=== PATIENT | female | born 1945 | race Hispanic/Latino ===

== ENCOUNTER 2019-03-12 10:48 | Emergency (ER) | payer MEDICARE ==
[2019-03-12] MEDS ORDERED: LORazepam 1 MG TAB PO ONE (11:24)
[2019-03-12 12:00] LABS: Eosinophils # (Auto) 0.1 K/mm3 (0.0-0.4); Eosinophils % (Auto) 1.4 % (0.0-4.3); Hematocrit 39.5 % (30.3-42.9); Hemoglobin 13.4 gm/dl (10.1-14.3); Lymphocytes % (Auto) 24.5 % (13.4-35.0); Mean Corpuscular HGB Conc 34 % (30-34); Mean Corpuscular Volume 86 fl (79-97); Monocytes # (Auto) 0.2 K/mm3 (0.0-0.8); Monocytes % (Auto) 5.5 % (0.0-7.3); Platelet Count 172 K/mm3 (140-440); Red Blood Count 4.57 M/mm3 (3.65-5.03); Red Cell Distribution Width 15.3 % (13.2-15.2)
[2019-03-12 12:07] LABS: Albumin 4.5 g/dL (3.9-5); Calcium 9.4 mg/dL (8.4-10.2)
--- NOTE | 2019-03-12 12:19 | Emergency Department Report ---
HPI - General Chief Complaint: Medical Clearance Time Seen by Provider: 03/12/19 11:13 - HPI HPI: Room 9 The patient is a 73-year-old female presenting with the chief complaint of dementia. Poorly had a "outbursts" at her assisted. Patient was combative with her table mate. When asked why she was brought to emergency department the patient replies "I don't know." The patient admits to being sad but denies suicidal ideation. The patient is a poor historian Location: [See above] Duration: [See above] Quality: [See above] Severity: [See above] Timing: [See above] Context: [See above] Modifying factors: [See above] Associated signs and symptoms: [see above] ED Past Medical Hx - Family History Family history: no significant - Social History Smoking Status: Never Smoker Substance Use Type: None - Medications Home Medications: Home Medications Medication Instructions Recorded Confirmed Last Taken Type Escitalopram 20 mg PO DAILY 03/13/19 03/13/19 Unknown History Melatonin 5 mg PO QHS 03/13/19 03/13/19 Unknown History Mirtazapine [Remeron 30mg TAB] 30 mg PO HS 03/13/19 03/13/19 Unknown History Omeprazole 40 mg PO BID 03/13/19 03/13/19 Unknown History Rivastigmine [Exelon Patch 4.6 mg TRANSDERMA DAILY 03/13/19 03/13/19 Unknown History 4.6mg/24hr] Rivastigmine [Exelon Patch 4.6 mg TRANSDERMA DAILY 03/13/19 03/13/19 Unknown History 4.6mg/24hr] Timolol 0.5% [Timoptic] 0.5 bottle OS BID 03/13/19 03/13/19 Unknown History prednisoLONE ACETATE [Prednisolone 1 drop OS DAILY 03/13/19 03/13/19 Unknown History Acetate] ED Review of Systems ROS: Stated complaint: ALZHEIMERS Other details as noted in HPI Comment: Unobtainable due to pts medical conditions Physical Exam - Physical Exam Vital Signs: Vital Signs 03/12/19 11:09 Temperature 98.1 F Pulse Rate 69 Respiratory 20 Rate Blood Pressure 192/77 O2 Sat by Pulse 100 Oximetry Physical Exam: GENERAL: The patient is well-developed well-nourished female lying on stretcher not appearing to be in acute distress. [] HEENT: Normocephalic. Atraumatic. Extraocular motions are intact. Patient has moist mucous membranes. NECK: Supple. No meningitic signs are noted. There is no adenopathy noted. CHEST/LUNGS: Clear to auscultation. There is no respiratory distress noted. HEART/CARDIOVASCULAR: Regular. There is no tachycardia. There is no gallop rub or murmur. ABDOMEN: Abdomen is soft, nontender. Patient has normal bowel sounds. There is no abdominal distention. SKIN: There is no rash. There is no edema. There is no diaphoresis. NEURO: The patient is awake, and alert but does not appear to be oriented. The patient is cooperative. The patient has no focal neurologic deficits. The patient has normal speech and gait. MUSCULOSKELETAL: There is no evidence of acute injury. ED Course Vital Signs 03/12/19 11:09 Temperature 98.1 F Pulse Rate 69 Respiratory 20 Rate Blood Pressure 192/77 O2 Sat by Pulse 100 Oximetry ED Medical Decision Making - Lab Data Result diagrams: 03/12/19 11:29 03/12/19 11:29 Laboratory Tests 03/12/19 03/12/19 03/12/19 11:24 11:24 11:29 WBC 4.3 L RBC 4.57 Hgb 13.4 Hct 39.5 MCV 86 MCH 29 MCHC 34 RDW 15.3 H Plt Count 172 Lymph % (Auto) 24.5 Early % (Auto) 5.5 Eos % (Auto) 1.4 Baso % (Auto) 1.0 Lymph # 1.0 L Early # 0.2 Eos # 0.1 Baso # 0.0 Seg Neutrophils % 67.6 Seg Neutrophils # 2.9 Sodium Potassium Chloride Carbon Dioxide Anion Gap BUN Creatinine Estimated GFR BUN/Creatinine Ratio Glucose Calcium Total Bilirubin AST ALT Alkaline Phosphatase Total Protein Albumin Albumin/Globulin Ratio Urine Color Yellow Urine Turbidity Hazy Urine pH 7.0 Ur Specific [place] 1.020 Urine Protein <15 mg/dl Urine Glucose (UA) Neg Urine Ketones Tr Urine Blood Neg Urine Nitrite Neg Urine Bilirubin Neg Urine Urobilinogen 2.0 Ur Leukocyte Esterase Tr Urine WBC (Auto) 5.0 Urine RBC (Auto) 8.0 U Epithel Cells (Auto) 5.0 Urine Mucus 2+ Urine Opiates Screen Presumptive negative Urine Methadone Screen Presumptive negative Ur Barbiturates Screen Presumptive negative Ur Phencyclidine Scrn Presumptive negative Ur Amphetamines Screen Presumptive negative U Benzodiazepines Scrn Presumptive negative Urine Cocaine Screen Presumptive negative U Marijuana (THC) Screen Presumptive negative Drugs of Abuse Note Disclamer Plasma/Serum Alcohol 03/12/19 03/12/19 11:29 11:29 WBC RBC Hgb Hct MCV MCH MCHC RDW Plt Count Lymph % (Auto) Early % (Auto) Eos % (Auto) Baso % (Auto) Lymph # Early # Eos # Baso # Seg Neutrophils % Seg Neutrophils # Sodium 141 Potassium 3.7 Chloride 103.4 Carbon Dioxide 22 Anion Gap 19 BUN 24 H Creatinine 1.1 Estimated GFR 48 BUN/Creatinine Ratio 22 Glucose 105 H Calcium 9.4 Total Bilirubin 0.50 AST 23 ALT 30 Alkaline Phosphatase 62 Total Protein 7.0 Albumin 4.5 Albumin/Globulin Ratio 1.8 Urine Color Urine Turbidity Urine pH Ur Specific [place] Urine Protein Urine Glucose (UA) Urine Ketones Urine Blood Urine Nitrite Urine Bilirubin Urine Urobilinogen Ur Leukocyte Esterase Urine WBC (Auto) Urine RBC (Auto) U Epithel Cells (Auto) Urine Mucus Urine Opiates Screen Urine Methadone Screen Ur Barbiturates Screen Ur Phencyclidine Scrn Ur Amphetamines Screen U Benzodiazepines Scrn Urine Cocaine Screen U Marijuana (THC) Screen Drugs of Abuse Note Plasma/Serum Alcohol < 0.01 - Differential Diagnosis dementia Critical care attestation.: If time is entered above; I have spent that time in minutes in the direct care of this critically ill patient, excluding procedure time. ED Disposition Clinical Impression: Dementia, Combative behavior Disposition: DC/TX-65 PSY HOSP/PSY UNIT Is pt being admited?: No Does the pt Need Aspirin: No Condition: Stable Instructions: Dementia (ED) Referrals: [facility] [Other] - 3-5 Days
[2019-03-12 13:19] LABS: Bilirubin,Urine NEG (Negative); Blood,Urine NEG (Negative); Color,Urine Yellow (Yellow); Mucus,Urine 2+ /HPF; Protein,Urine <15 mg/dL mg/dL (Negative)
[2019-03-12 13:26] LABS: Amphetamine Screen,Urine PRESUMPTIVE NEGATIVE; Benzodiazepines Screen,Urine PRESUMPTIVE NEGATIVE; Cannabinoid Screen,Urine PRESUMPTIVE NEGATIVE; Cocaine Screen,Urine PRESUMPTIVE NEGATIVE; Methadone Screen,Urine PRESUMPTIVE NEGATIVE; Opiate Screen,Urine PRESUMPTIVE NEGATIVE
[2019-03-12] MEDS ORDERED: cloNIDine 0.2 MG TAB PO ONE (14:08)
[2019-03-12] MEDS ORDERED: HALOPERIDOL LACTATE 5 MG/1 ML INJ ONE (14:17)
[2019-03-12] MEDS ORDERED: HALOPERIDOL LACTATE 5 MG/1 ML INJ IM ONE (14:24)
[2019-03-12 16:17] VITALS: BP 129/79
== END 2019-03-12 17:04 ==
LOC: ED 10:48
DX: G30.9 Alzheimer's disease, unspecified (principal); F02.81 Dementia in other diseases classified elsewhere, unspecified severity, with behavioral disturbance; Z79.899 Other long term (current) drug therapy; Z91.010 Allergy to peanuts
CPT/HCPCS: 36415; 80053; 80307; 81001; 85025; 96372; 99285; J1630; 80320; G0480

== ENCOUNTER 2019-03-12 15:09 | Inpatient (IN) | payer MEDICARE ==
[2019-03-12 21:11] LABS: Chol/HDL Ratio 3.72 %
[2019-03-12] MEDS ORDERED: MELATONIN 5 MG TAB PO SCH (22:00)
--- NOTE | 2019-03-13 07:59 | History and Physical Report ---
GP History & Physical - History of Present Illness Date of admission: 03/12/19 Date of Examination: 03/13/19 Reason for Admission: Danger to others Chief Complaint: Agressive and combative with staff and residents History of Present Illness: 73 year old female transferred to the ER for aggressive behavior towards Staffs and Resident at [facility]. Pt appears to be confused and unaware of her actions leading to her being transferred here. Pt is A&O x1 making it difficult to form a conversation due to her confusion. While assessing the pt, she stated that she is here because she was seeing things on and off for a while now. Pt stated that she is feeling pretty good today, eating well and sleeping well. Pt denies SI/HI/AVH or voices. MSE Orientation: A&O X 1 Affect: confused Mood: congruent with affect Thought Process: confused Perceptions: hallucinations Speech: paucity Concentration: focused Motor activity: normal Level of consciousness: alert Memory: minimal loss Interaction: cooperative but confused Mini-Mental Status Exam: 2 out of 30 Legal Status: Involuntary Patient Problems: Current Active Problems Major neurocognitive disorder due to Alzheimer's disease, with behavioral disturbance (Acute) Reaction to Hospitalization: Accepting Medications and Allergies Allergies Allergy/AdvReac Type Severity Reaction Status Date / Time peanut AdvReac Unknown Verified 03/12/19 11:46 Home Medications Medication Instructions Recorded Confirmed Last Taken Type Escitalopram 20 mg PO DAILY 03/13/19 03/13/19 Unknown History Melatonin 5 mg PO QHS 03/13/19 03/13/19 Unknown History Mirtazapine [Remeron 30mg TAB] 30 mg PO HS 03/13/19 03/13/19 Unknown History Omeprazole 40 mg PO BID 03/13/19 03/13/19 Unknown History Rivastigmine [Exelon Patch 4.6 mg TRANSDERMA DAILY 03/13/19 03/13/19 Unknown History 4.6mg/24hr] Rivastigmine [Exelon Patch 4.6 mg TRANSDERMA DAILY 03/13/19 03/13/19 Unknown History 4.6mg/24hr] Timolol 0.5% [Timoptic] 0.5 bottle OS BID 03/13/19 03/13/19 Unknown History prednisoLONE ACETATE [Prednisolone 1 drop OS DAILY 03/13/19 03/13/19 Unknown History Acetate] Active Meds: Active Medications Haloperidol Lactate (Haldol) 5 mg IM Q6H PRN PRN Reason: Agitation Lorazepam (Ativan) 1 mg IM Q6H PRN PRN Reason: Agitation Mirtazapine (Remeron) 30 mg PO HS JOHN Miscellaneous Medication (Omeprazole [Omeprazole]) 40 mg PO BID JOHN Miscellaneous Medication (Escitalopram) 20 mg PO DAILY JOHN Miscellaneous Medication (Melatonin) 5 mg PO QHS JOHN Prednisolone Acetate (Pred Forte 1%) drops OS DAILY JOHN Rivastigmine (Exelon) 4.6 mg TD DAILY JOHN Timolol Maleate (Timoptic) drops OS BID JOHN Substance History - Substance History Drug Use: none Hx Tobacco Use: No Alcohol Use: No Past psychiatric history - Past Medical History Past Medical History: hypertension, other (Dementia) Past Surgical History: No surgical history - Social History Social history: other (Patient lives in a NH. Rest of Social History not available at this time) Review of Systems Psychiatric: memory loss, hallucinations, confusion, irritability Results - Results Labs/Vitals: Laboratory Last Values POC Glucose 75 (70-105) 03/12/19 20:03 Hemoglobin A1c 5.7 % (4-6) 03/12/19 20:02 Triglycerides 150 mg/dL (2-149) H 03/12/19 20:02 Cholesterol 201 mg/dL (50-199) H 03/12/19 20:02 LDL Cholesterol Direct 134 mg/dL (50-130) H 03/12/19 20:02 HDL Cholesterol 54 mg/dL (40-59) 03/12/19 20:02 Cholesterol/HDL Ratio 3.72 % 03/12/19 20:02 Last Vital Signs Temp 97.3 F L 03/12/19 19:42 Pulse 68 03/12/19 19:42 Resp 20 03/12/19 19:42 BP 134/77 03/12/19 19:42 Pulse Ox 99 03/12/19 19:42 Physical Examination - Constitutional Vitals: Vital Signs Temp Pulse Resp BP Pulse Ox 97.3 F L 68 20 134/77 99 03/12/19 19:42 03/12/19 19:42 03/12/19 19:42 03/12/19 19:42 03/12/19 19:42 Temperature -Last 24 Hours Temperature 97.3 F General appearance: Present: no acute distress - EENT Eyes: Present: PERRL, EOM intact ENT: hearing intact, clear oral mucosa - Neck Neck: Present: supple, normal ROM - Respiratory Respiratory effort: normal Mental Status Exam - Vital signs Last Vital Signs Temp 97.3 F L 03/12/19 19:42 Pulse 68 03/12/19 19:42 Resp 20 03/12/19 19:42 BP 134/77 03/12/19 19:42 Pulse Ox 99 03/12/19 19:42 - Exam Affect: flat Mood: calm Thought content: other (visual hallucinations) Thought Process: Disorganized Perceptions: visual Speech: paucity Concentration: unable to pay attention Motor activity: lethargic Level of consciousness: alert Memory: Recent Impaired, Remote Impaired Interaction: cooperative Mini mental status exam(if necessary): 0-17 Assessment and Plan - Psychiatric problem (1) Major neurocognitive disorder due to Alzheimer's disease, with behavioral disturbance Current Visit: Yes Status: Acute plan to address problem: Patient will be admitted for inpatient psychiatric evaluation, medication adjustment and close monitoring The patient's behavior, mood, sleep and appetite will be closely monitored. Patient will be enrolled in individual and group therapeutic sessions and encouraged to attend. Patient will be provided with a safe and structured environment. Patient's physical health needs will be addressed by the Hospitalist. Social Assessment will be completed and the Media Production Manager will work with patient and family to ensure a suitable and safe disposition Medication adjustment will be made as clinically indicated The patient agreed on the treatment plan, understood the risk, benefit, alternative treatment, potential consequence of no treatment, and gave informed consent. Physician Certification - Certification Statement Physician Certification Statement: This is an acknowledgement statement that SEAN DELEON is a 73 year old F who requires inpatient psychiatric admission for treatment which could reasonably be expected to improve the patient's condition for Behavioral disturbance Estimated period of time patient will need to remain in the hospital: 7 days Plan for post-hospital care: Out-patient care
[2019-03-13] MEDS: LORazepam 2 MG/ML VIAL IM PRN (08:45)
[2019-03-13] MEDS: prednisoLONE ACETATE 1% OPHTH SUSP 5 ML OS SCH (09:33)
[2019-03-13] MEDS: TIMOLOL 0.5% OPHTH SOLN 5 ML OS SCH ×2 (09:33→21:09)
[2019-03-13] MEDS: PANTOPRAZOLE 40 MG TAB PO SCH (09:34)
[2019-03-13] MEDS: RIVASTIGMINE 4.6 MG/24 HR PATCH TD SCH (09:34)
[2019-03-13] MEDS: ESCITALOPRAM 10 MG TAB PO SCH (09:34)
[2019-03-13] MEDS ORDERED: NON-FORMULARY EACH (Escitalopram 20 MG) PO SCH (10:00)
[2019-03-13] MEDS ORDERED: NON-FORMULARY EACH (Omeprazole [Omeprazole] 40 MG) PO SCH (10:00)
--- NOTE | 2019-03-13 14:20 | Consultation ---
History of Present Illness - Reason for Consult Consult date: 03/13/19 Medical evaluation for admission to Geripsych unit - History of Present Illness Patient is a 73 yo woman from [facility] with a history of Depression, Anxiety, Alzheimer's Dementia and unspecified type of glaucoma who presented to [facility] ED with aggressive violent behavior toward [place] staff and residents. She gives very little history due to confusion. I called and spoke with who provided history. Patient has been in [place] still November 2018. 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 Rest of Social History not available at this time) Medications and Allergies Allergies Allergy/AdvReac Type Severity Reaction Status Date / Time peanut AdvReac Unknown Verified 03/12/19 11:46 Home Medications Medication Instructions Recorded Confirmed Last Taken Type Escitalopram 20 mg PO DAILY 03/13/19 03/13/19 Unknown History Melatonin 5 mg PO QHS 03/13/19 03/13/19 Unknown History Mirtazapine [Remeron 30mg TAB] 30 mg PO HS 03/13/19 03/13/19 Unknown History Omeprazole 40 mg PO BID 03/13/19 03/13/19 Unknown History Rivastigmine [Exelon Patch 4.6 mg TRANSDERMA DAILY 03/13/19 03/13/19 Unknown History 4.6mg/24hr] Rivastigmine [Exelon Patch 4.6 mg TRANSDERMA DAILY 03/13/19 03/13/19 Unknown History 4.6mg/24hr] Timolol 0.5% [Timoptic] 0.5 bottle OS BID 03/13/19 03/13/19 Unknown History prednisoLONE ACETATE [Prednisolone 1 drop OS DAILY 03/13/19 03/13/19 Unknown History Acetate] Active Meds: Active Medications Escitalopram Oxalate (Lexapro) 20 mg PO DAILY [facility] Last Admin: 03/13/19 09:34 Dose: 20 mg Documented by: Haloperidol Lactate (Haldol) 5 mg IM Q6H PRN PRN Reason: Agitation Lorazepam (Ativan) 1 mg IM Q6H PRN PRN Reason: Agitation Last Admin: 03/13/19 08:45 Dose: 1 mg Documented by: Melatonin (Melatonin) 5 mg PO QHS [facility] Mirtazapine (Remeron) 30 mg PO HS [facility] Pantoprazole Sodium (Protonix) 40 mg PO DAILY [facility] Last Admin: 03/13/19 09:34 Dose: 40 mg Documented by: Prednisolone Acetate (Pred Forte 1%) 1 drops OS DAILY [facility] Last Admin: 03/13/19 09:33 Dose: 1 drops Documented by: Rivastigmine (Exelon) 4.6 mg TD DAILY [facility] Last Admin: 03/13/19 09:34 Dose: 4.6 mg Documented by: Timolol Maleate (Timoptic) 1 drops OS BID [facility] Last Admin: 03/13/19 09:33 Dose: 1 drops Documented by: Exam - Physical Exam Narrative exam: Gen: thin frail, NAD, Awake, Alert, Orientated x1 HEENT: NCAT, EOMI, PERRL, OP Clear Neck: supple, no adenopathy, no thyromegaly, no JVD CVS/Heart: RRR, normal S1S2, pulses present bilaterally Chest/Lungs: CTA B, Symmetrical chest expansion, good air entry bilaterally GI/Abdomen: soft, NTND, good bowel sounds, no guarding or rebound /Bladder: no suprapubic tenderness, no CVA or paraspinal tenderness Extermity/Skin: no c/c/e, no obvious rash MSK: FROM x 4 Neuro: CN 2-12 grossly intact, no new focal deficits Psych: calm but confused - Constitutional Vitals: Temp Pulse Resp BP Pulse Ox 97.3 F L 68 20 134/77 99 03/12/19 19:42 03/12/19 19:42 03/12/19 19:42 03/12/19 19:42 03/12/19 19:42 Results - Labs Labs: Abnormal lab results 03/12/19 Range/Units 20:02 Triglycerides 150 H (2-149) mg/dL Cholesterol 201 H (50-199) mg/dL LDL Cholesterol Direct 134 H (50-130) mg/dL Assessment and Plan Patient is a 73 yo woman from [facility] with a history of Depression, Anxiety, Alzheimer's Dementia and unspecified type of glaucoma who presented to [facility] ED with aggressive violent behavior toward [facility] staff and residents. She gives very little history due to confusion. I called and spoke with who provided history. Patient has been in NH still November 2018. PCP is Dr. Lilo Earl at [place]. Alzheimer's disease with behavioral disturbances: psych to manage Glaucoma: continue NH/home drops Acute encephalopathy: Evaluated for UTI, use Miralax for constipation Depression: Psych to evaluate
[2019-03-13] MEDS ORDERED: POLYETHYLENE GLYCOL 3350 17 GM POWDER PO PRN (14:22)
[2019-03-13] MEDS: MELATONIN 5 MG TAB PO SCH (21:09)
[2019-03-13] MEDS: MIRTAZAPINE 30 MG TAB PO SCH (21:09)
[2019-03-13] MEDS ORDERED: NON-FORMULARY EACH (Melatonin 5 MG) PO SCH (22:00)
--- NOTE | 2019-03-14 07:10 | Progress Note ---
Subjective Date of service: 03/14/19 Principal diagnosis: Dementia Subjective Comment: Pt see this morning. She sedated and lethargic. Pt made eye contact, appearing confused and disoriented. Per Nursing Notes: Pt is eating well, sleeping well and compliant with meds. Pt has no complaints or behavioral issues to report at this time. MSE Orientation: Alert Affect: confused Mood: congruent with affect Thought Process: confused Perceptions: hallucinations Speech: paucity Concentration: lethargic Motor activity: normal Level of consciousness: alert Memory: Impaired Interaction: minimum Objective - Criteria for Continued Treatment Criteria for Continued Treatment: Improving Level of Functioning - Mental Status Mental Status: Lethargic - Objective Observation Participation Level: None Reason(s) For Not Participating: Sleeping Assessment and Plan - Patient Problems (1) Major neurocognitive disorder due to Alzheimer's disease, with behavioral disturbance Current Visit: Yes Status: Acute Plan to address problem: Patient will be admitted for inpatient psychiatric evaluation, medication adjustment and close monitoring The patient's behavior, mood, sleep and appetite will be closely monitored. Patient will be enrolled in individual and group therapeutic sessions and encouraged to attend. Patient will be provided with a safe and structured environment. Patient's physical health needs will be addressed by the Hospitalist. Social Assessment will be completed and the Damper Maker will work with sherman ent and family to ensure a suitable and safe disposition Medication adjustment will be made as clinically indicated The patient agreed on the treatment plan, understood the risk, benefit, alternative treatment, potential consequence of no treatment, and gave informed consent. Medications and Allergies Allergies Allergy/AdvReac Type Severity Reaction Status Date / Time peanut AdvReac Unknown Verified 03/12/19 11:46 Home Medications Medication Instructions Recorded Confirmed Last Taken Type Escitalopram 20 mg PO DAILY 03/13/19 03/13/19 Unknown History Melatonin 5 mg PO QHS 03/13/19 03/13/19 Unknown History Mirtazapine [Remeron 30mg TAB] 30 mg PO HS 03/13/19 03/13/19 Unknown History Omeprazole 40 mg PO BID 03/13/19 03/13/19 Unknown History Rivastigmine [Exelon Patch 4.6 mg TRANSDERMA DAILY 03/13/19 03/13/19 Unknown History 4.6mg/24hr] Rivastigmine [Exelon Patch 4.6 mg TRANSDERMA DAILY 03/13/19 03/13/19 Unknown History 4.6mg/24hr] Timolol 0.5% [Timoptic] 0.5 bottle OS BID 03/13/19 03/13/19 Unknown History prednisoLONE ACETATE [Prednisolone 1 drop OS DAILY 03/13/19 03/13/19 Unknown History Acetate] Active Meds: Active Medications Escitalopram Oxalate (Lexapro) 20 mg PO DAILY [facility] Last Admin: 03/13/19 09:34 Dose: 20 mg Documented by: Haloperidol Lactate (Haldol) 5 mg IM Q6H PRN PRN Reason: Agitation Lorazepam (Ativan) 1 mg IM Q6H PRN PRN Reason: Agitation Last Admin: 03/13/19 08:45 Dose: 1 mg Documented by: Melatonin (Melatonin) 5 mg PO QHS [facility] Last Admin: 03/13/19 21:09 Dose: 5 mg Documented by: Mirtazapine (Remeron) 30 mg PO HS [facility] Last Admin: 03/13/19 21:09 Dose: 30 mg Documented by: Pantoprazole Sodium (Protonix) 40 mg PO DAILY [facility] Last Admin: 03/13/19 09:34 Dose: 40 mg Documented by: Polyethylene Glycol (Miralax [id number]) 17 gm PO QDAY PRN PRN Reason: Constipation Prednisolone Acetate (Pred Forte 1%) 1 drops OS DAILY [facility] Last Admin: 03/13/19 09:33 Dose: 1 drops Documented by: Rivastigmine (Exelon) 4.6 mg TD DAILY [facility] Last Admin: 03/13/19 09:34 Dose: 4.6 mg Documented by: Timolol Maleate (Timoptic) 1 drops OS BID [facility] Last Admin: 03/13/19 21:09 Dose: 1 drops Documented by: Results - Results Labs/Vitals: Laboratory Last Values POC Glucose 75 (70-105) 03/12/19 20:03 Hemoglobin A1c 5.7 % (4-6) 03/12/19 20:02 Triglycerides 150 mg/dL (2-149) H 03/12/19 20:02 Cholesterol 201 mg/dL (50-199) H 03/12/19 20:02 LDL Cholesterol Direct 134 mg/dL (50-130) H 03/12/19 20:02 HDL Cholesterol 54 mg/dL (40-59) 03/12/19 20:02 Cholesterol/HDL Ratio 3.72 % 03/12/19 20:02 Last Vital Signs Temp 98.2 F 03/13/19 09:18 Pulse 95 H 03/13/19 09:18 Resp 16 03/13/19 09:18 BP 135/72 03/13/19 09:18 Pulse Ox 98 03/13/19 09:18
[2019-03-14] MEDS: RIVASTIGMINE 4.6 MG/24 HR PATCH TD SCH (09:40)
[2019-03-14] MEDS: ESCITALOPRAM 10 MG TAB PO SCH (09:40)
[2019-03-14] MEDS: prednisoLONE ACETATE 1% OPHTH SUSP 5 ML OS SCH (09:40)
[2019-03-14] MEDS: TIMOLOL 0.5% OPHTH SOLN 5 ML OS SCH ×2 (09:40→21:16)
[2019-03-14] MEDS: PANTOPRAZOLE 40 MG TAB PO SCH (09:41)
[2019-03-14] MEDS: MELATONIN 5 MG TAB PO SCH (21:15)
[2019-03-14] MEDS: MIRTAZAPINE 30 MG TAB PO SCH (21:16)
[2019-03-14] MEDS: LORazepam 2 MG/ML VIAL IM PRN (22:21)
[2019-03-14] MEDS: HALOPERIDOL LACTATE 5 MG/1 ML INJ IM PRN (23:20)
--- NOTE | 2019-03-15 08:42 | Progress Note ---
Subjective Date of service: 03/15/19 Principal diagnosis: Dementia Subjective Comment: Patient was very agitated last night and required multiple PRN medications. She is sleeping comfortably in bed, responds to stimuli Per nurses notes; patient is alert and oriented to person, confused, and fo rgetful, consumed 100% of bedtime snacks and 236 ml of fluids, patient is compliant with medication, At bedtime, patient began wandering the unit, asking about her and children, patient was redirected, patient was taken to her room, she became aggressive, combative, yelling, screaming, kicking the bed; ativan 1mg 1m given, med was ineffective, haldol 5mg Im given with effect, patient then allowed staff to clean and change her, patient slept comfortably throughout the night for 5-6hrs. MSE Orientation: Alert Affect: confused Mood: congruent with affect Thought Process: confused Perceptions: hallucinations Speech: paucity Concentration: lethargic Motor activity: normal Level of consciousness: alert Memory: Impaired Interaction: minimum Objective - Criteria for Continued Treatment Criteria for Continued Treatment: Stablizing Level of Functioning - Mental Status Mental Status: Alert - Objective Observation Participation Level: None Reason(s) For Not Participating: Sleeping Assessment and Plan - Patient Problems (1) Major neurocognitive disorder due to Alzheimer's disease, with behavioral disturbance Current Visit: Yes Status: Acute Plan to address problem: Patient will be admitted for inpatient psychiatric evaluation, medication adjustment and close monitoring The patient's behavior, mood, sleep and appetite will be closely monitored. Patient will be enrolled in individual and group therapeutic sessions and encouraged to attend. Patient will be provided with a safe and structured environment. Patient's physical health needs will be addressed by the Hospitalist. Social Assessment will be completed and the Salsa Dance Instructor will work with patient and family to ensure a suitable and safe disposition Medication adjustment will be made as clinically indicated The patient agreed on the treatment plan, understood the risk, benefit, alternative treatment, potential consequence of no treatment, and gave informed consent. Medications and Allergies Allergies Allergy/AdvReac Type Severity Reaction Status Date / Time peanut AdvReac Unknown Verified 03/12/19 11:46 Home Medications Medication Instructions Recorded Confirmed Last Taken Type Escitalopram 20 mg PO DAILY 03/13/19 03/13/19 Unknown History Melatonin 5 mg PO QHS 03/13/19 03/13/19 Unknown History Mirtazapine [Remeron 30mg TAB] 30 mg PO HS 03/13/19 03/13/19 Unknown History Omeprazole 40 mg PO BID 03/13/19 03/13/19 Unknown History Rivastigmine [Exelon Patch 4.6 mg TRANSDERMA DAILY 03/13/19 03/13/19 Unknown History 4.6mg/24hr] Rivastigmine [Exelon Patch 4.6 mg TRANSDERMA DAILY 03/13/19 03/13/19 Unknown History 4.6mg/24hr] Timolol 0.5% [Timoptic] 0.5 bottle OS BID 03/13/19 03/13/19 Unknown History prednisoLONE ACETATE [Prednisolone 1 drop OS DAILY 03/13/19 03/13/19 Unknown History Acetate] Active Meds: Active Medications Escitalopram Oxalate (Lexapro) 20 mg PO DAILY [facility] Last Admin: 03/14/19 09:40 Dose: 20 mg Documented by: Haloperidol Lactate (Haldol) 5 mg IM Q6H PRN PRN Reason: Agitation Last Admin: 03/14/19 23:20 Dose: 5 mg Documented by: Lorazepam (Ativan) 1 mg IM Q6H PRN PRN Reason: Agitation Last Admin: 03/14/19 22:21 Dose: 1 mg Documented by: Melatonin (Melatonin) 10 mg PO QPM [facility] Mirtazapine (Remeron) 15 mg PO QHS [facility] Pantoprazole Sodium (Protonix) 40 mg PO DAILY [facility] Last Admin: 03/14/19 09:41 Dose: 40 mg Documented by: Polyethylene Glycol (Miralax [id number]) 17 gm PO QDAY PRN PRN Reason: Constipation Prednisolone Acetate (Pred Forte 1%) 1 drops OS DAILY [facility] Last Admin: 03/14/19 09:40 Dose: 1 drops Documented by: Rivastigmine (Exelon) 4.6 mg TD DAILY [facility] Last Admin: 03/14/19 09:40 Dose: 4.6 mg Documented by: Timolol Maleate (Timoptic) 1 drops OS BID [facility] Last Admin: 03/14/19 21:16 Dose: 1 drops Documented by: Trazodone HCl (Desyrel) 50 mg PO QPM [facility] Results - Results Labs/Vitals: Laboratory Last Values POC Glucose 75 (70-105) 03/12/19 20:03 Hemoglobin A1c 5.7 % (4-6) 03/12/19 20:02 Triglycerides 150 mg/dL (2-149) H 03/12/19 20:02 Cholesterol 201 mg/dL (50-199) H 03/12/19 20:02 LDL Cholesterol Direct 134 mg/dL (50-130) H 03/12/19 20:02 HDL Cholesterol 54 mg/dL (40-59) 03/12/19 20:02 Cholesterol/HDL Ratio 3.72 % 03/12/19 20:02 Last Vital Signs Temp 98.0 F 03/14/19 20:59 Pulse 90 03/14/19 20:59 Resp 20 03/14/19 20:59 BP 162/87 03/14/19 20:59 Pulse Ox 97 03/14/19 20:59
[2019-03-15] MEDS: PANTOPRAZOLE 40 MG TAB PO SCH (10:24)
[2019-03-15] MEDS: RIVASTIGMINE 4.6 MG/24 HR PATCH TD SCH (10:24)
[2019-03-15] MEDS: TIMOLOL 0.5% OPHTH SOLN 5 ML OS SCH ×2 (10:24→21:14)
[2019-03-15] MEDS: ESCITALOPRAM 10 MG TAB PO SCH (10:24)
[2019-03-15] MEDS: prednisoLONE ACETATE 1% OPHTH SUSP 5 ML OS SCH (10:24)
[2019-03-15] MEDS: traZODone 50 MG TAB PO SCH (17:50)
[2019-03-15] MEDS: MELATONIN 5 MG TAB PO SCH (17:50)
[2019-03-15] MEDS: MIRTAZAPINE 15 MG TAB PO SCH (21:14)
[2019-03-16] MEDS: ESCITALOPRAM 10 MG TAB PO SCH (10:20)
[2019-03-16] MEDS: PANTOPRAZOLE 40 MG TAB PO SCH (10:20)
[2019-03-16] MEDS: RIVASTIGMINE 4.6 MG/24 HR PATCH TD SCH (10:20)
[2019-03-16] MEDS: prednisoLONE ACETATE 1% OPHTH SUSP 5 ML OS SCH (10:21)
[2019-03-16] MEDS: TIMOLOL 0.5% OPHTH SOLN 5 ML OS SCH ×2 (10:21→21:43)
--- NOTE | 2019-03-16 13:09 | Progress Note ---
Subjective Date of service: 03/16/19 Principal diagnosis: Dementia Subjective Comment: Patient continues to be agitated, confused and difficult to redirect. Per nurses notes; patient is alert and oriented x's 1, confused, and forgetful. patient thoughts are fragmented and disorganized. patient wanders around unit, requiring redirection. currently medication compliant. no s/sx of si/hi. no c/o pain. patient requires prompting with adl's. cooperative with adl's this AM. will continue to monitor for safety. MSE Orientation: Alert Affect: confused Mood: congruent with affect Thought Process: confused Perceptions: hallucinations Speech: paucity Concentration: lethargic Motor activity: normal Level of consciousness: alert Memory: Impaired Interaction: minimum Assessment and Plan - Patient Problems (1) Major neurocognitive disorder due to Alzheimer's disease, with behavioral disturbance Current Visit: Yes Status: Acute Plan to address problem: Patient will be admitted for inpatient psychiatric evaluation, medication adjustment and close monitoring The patient's behavior, mood, sleep and appetite will be closely monitored. Patient will be enrolled in individual and group therapeutic sessions and encouraged to attend. Patient will be provided with a safe and structured environment. Patient's physical health needs will be addressed by the Hospitalist. Social Assessment will be completed and the Assistant Associate Professor will work with patient and family to ensure a suitable and safe disposition Medication adjustment will be made as clinically indicated The patient agreed on the treatment plan, understood the risk, benefit, alternative treatment, potential consequence of no treatment, and gave informed consent. Medications and Allergies Allergies Allergy/AdvReac Type Severity Reaction Status Date / Time peanut AdvReac Unknown Verified 03/12/19 11:46 Home Medications Medication Instructions Recorded Confirmed Last Taken Type Escitalopram 20 mg PO DAILY 03/13/19 03/13/19 Unknown History Melatonin 5 mg PO QHS 03/13/19 03/13/19 Unknown History Mirtazapine [Remeron 30mg TAB] 30 mg PO HS 03/13/19 03/13/19 Unknown History Omeprazole 40 mg PO BID 03/13/19 03/13/19 Unknown History Rivastigmine [Exelon Patch 4.6 mg TRANSDERMA DAILY 03/13/19 03/13/19 Unknown History 4.6mg/24hr] Rivastigmine [Exelon Patch 4.6 mg TRANSDERMA DAILY 03/13/19 03/13/19 Unknown History 4.6mg/24hr] Timolol 0.5% [Timoptic] 0.5 bottle OS BID 03/13/19 03/13/19 Unknown History prednisoLONE ACETATE [Prednisolone 1 drop OS DAILY 03/13/19 03/13/19 Unknown History Acetate] Active Meds: Active Medications Escitalopram Oxalate (Lexapro) 20 mg PO DAILY [facility] Last Admin: 03/16/19 10:20 Dose: 20 mg Documented by: Haloperidol Lactate (Haldol) 5 mg IM Q6H PRN PRN Reason: Agitation Last Admin: 03/14/19 23:20 Dose: 5 mg Documented by: Lorazepam (Ativan) 1 mg IM Q6H PRN PRN Reason: Agitation Last Admin: 03/14/19 22:21 Dose: 1 mg Documented by: Melatonin (Melatonin) 10 mg PO QPM [facility] Last Admin: 03/15/19 17:50 Dose: 10 mg Documented by: Mirtazapine (Remeron) 15 mg PO QHS [facility] Last Admin: 03/15/19 21:14 Dose: 15 mg Documented by: Pantoprazole Sodium (Protonix) 40 mg PO DAILY [facility] Last Admin: 03/16/19 10:20 Dose: 40 mg Documented by: Polyethylene Glycol (Miralax [id number]) 17 gm PO QDAY PRN PRN Reason: Constipation Prednisolone Acetate (Pred Forte 1%) 1 drops OS DAILY [facility] Last Admin: 03/16/19 10:21 Dose: 1 drops Documented by: Rivastigmine (Exelon) 4.6 mg TD DAILY [facility] Last Admin: 03/16/19 10:20 Dose: 4.6 mg Documented by: Timolol Maleate (Timoptic) 1 drops OS BID [facility] Last Admin: 03/16/19 10:21 Dose: 1 drops Documented by: Trazodone HCl (Desyrel) 50 mg PO QPM [facility] Last Admin: 03/15/19 17:50 Dose: 50 mg Documented by: Results - Results Labs/Vitals: Laboratory Last Values POC Glucose 75 (70-105) 03/12/19 20:03 Hemoglobin A1c 5.7 % (4-6) 03/12/19 20:02 Triglycerides 150 mg/dL (2-149) H 03/12/19 20:02 Cholesterol 201 mg/dL (50-199) H 03/12/19 20:02 LDL Cholesterol Direct 134 mg/dL (50-130) H 03/12/19 20:02 HDL Cholesterol 54 mg/dL (40-59) 03/12/19 20:02 Cholesterol/HDL Ratio 3.72 % 03/12/19 20:02 Last Vital Signs Temp 97.9 F 03/16/19 09:32 Pulse 80 03/16/19 09:32 Resp 18 03/15/19 19:25 BP 159/85 03/16/19 09:32 Pulse Ox 99 03/16/19 09:32
[2019-03-16] MEDS: MELATONIN 5 MG TAB PO SCH (17:01)
[2019-03-16] MEDS: traZODone 50 MG TAB PO SCH (17:01)
[2019-03-16] MEDS: MIRTAZAPINE 15 MG TAB PO SCH (21:43)
[2019-03-17] MEDS: prednisoLONE ACETATE 1% OPHTH SUSP 5 ML OS SCH (13:14)
[2019-03-17] MEDS: RIVASTIGMINE 4.6 MG/24 HR PATCH TD SCH (13:14)
[2019-03-17] MEDS: ESCITALOPRAM 10 MG TAB PO SCH (13:14)
[2019-03-17] MEDS: PANTOPRAZOLE 40 MG TAB PO SCH (13:15)
[2019-03-17] MEDS: TIMOLOL 0.5% OPHTH SOLN 5 ML OS SCH ×2 (13:16→21:34)
--- NOTE | 2019-03-17 14:22 | Progress Note ---
Subjective Date of service: 03/17/19 Principal diagnosis: Dementia Subjective Comment: Patient continues to be agitated, confused and difficult to redirect. Per nurses notes: pt is A&O to person, confused and unable to focus on task. pt was restless this morning, she was wandering and exit seeking. pt was easily redirected and reoriented to reality. pt received a shower w/ assistance and max direction. pt has been compliant w/ meds and cooperative w/ staff. gait is unsteady at times, SBA provided prn. appetite is fair, v/s stable. MSE Orientation: Alert Affect: confused Mood: congruent with affect Thought Process: confused Perceptions: hallucinations Speech: paucity Concentration: lethargic Motor activity: normal Level of consciousness: alert Memory: Impaired Interaction: minimum Objective - Criteria for Continued Treatment Criteria for Continued Treatment: Improving Level of Functioning, Stablizing Level of Functioning, Improving Emotional/Socia - Objective Observation Participation Level: Minimal Reason(s) For Not Participating: Unable Assessment and Plan - Patient Problems (1) Major neurocognitive disorder due to Alzheimer's disease, with behavioral disturbance Current Visit: Yes Status: Acute Plan to address problem: Patient will be admitted for inpatient psychiatric evaluation, medication adjustment and close monitoring The patient's behavior, mood, sleep and appetite will be closely monitored. Patient will be enrolled in individual and group therapeutic sessions and encouraged to attend. Patient will be provided with a safe and structured environment. Patient's physical health needs will be addressed by the Hospitalist. Social Assessment will be completed and the Facility Manager Histology will work with patient and family to ensure a suitable and safe disposition Medication adjustment will be made as clinically indicated The patient agreed on the treatment plan, understood the risk, benefit, alternative treatment, potential consequence of no treatment, and gave informed consent. Medications and Allergies Allergies Allergy/AdvReac Type Severity Reaction Status Date / Time peanut AdvReac Unknown Verified 03/12/19 11:46 Home Medications Medication Instructions Recorded Confirmed Last Taken Type Escitalopram 20 mg PO DAILY 03/13/19 03/13/19 Unknown History Melatonin 5 mg PO QHS 03/13/19 03/13/19 Unknown History Mirtazapine [Remeron 30mg TAB] 30 mg PO HS 03/13/19 03/13/19 Unknown History Omeprazole 40 mg PO BID 03/13/19 03/13/19 Unknown History Rivastigmine [Exelon Patch 4.6 mg TRANSDERMA DAILY 03/13/19 03/13/19 Unknown History 4.6mg/24hr] Rivastigmine [Exelon Patch 4.6 mg TRANSDERMA DAILY 03/13/19 03/13/19 Unknown History 4.6mg/24hr] Timolol 0.5% [Timoptic] 0.5 bottle OS BID 03/13/19 03/13/19 Unknown History prednisoLONE ACETATE [Prednisolone 1 drop OS DAILY 03/13/19 03/13/19 Unknown History Acetate] Active Meds: Active Medications Escitalopram Oxalate (Lexapro) 20 mg PO DAILY [facility] Last Admin: 03/17/19 13:14 Dose: 20 mg Documented by: Haloperidol Lactate (Haldol) 5 mg IM Q6H PRN PRN Reason: Agitation Last Admin: 03/14/19 23:20 Dose: 5 mg Documented by: Lorazepam (Ativan) 1 mg IM Q6H PRN PRN Reason: Agitation Last Admin: 03/14/19 22:21 Dose: 1 mg Documented by: Melatonin (Melatonin) 10 mg PO QPM [facility] Last Admin: 03/16/19 17:01 Dose: 10 mg Documented by: Mirtazapine (Remeron) 15 mg PO QHS [facility] Last Admin: 03/16/19 21:43 Dose: 15 mg Documented by: Pantoprazole Sodium (Protonix) 40 mg PO DAILY [facility] Last Admin: 03/17/19 13:15 Dose: 40 mg Documented by: Polyethylene Glycol (Miralax [id number]) 17 gm PO QDAY PRN PRN Reason: Constipation Prednisolone Acetate (Pred Forte 1%) 1 drops OS DAILY [facility] Last Admin: 03/17/19 13:14 Dose: 1 drops Documented by: Rivastigmine (Exelon) 4.6 mg TD DAILY [facility] Last Admin: 03/17/19 13:14 Dose: 4.6 mg Documented by: Timolol Maleate (Timoptic) 1 drops OS BID [facility] Last Admin: 03/17/19 13:16 Dose: 1 drops Documented by: Trazodone HCl (Desyrel) 50 mg PO QPM [facility] Last Admin: 03/16/19 17:01 Dose: 50 mg Documented by: Results - Results Labs/Vitals: Laboratory Last Values POC Glucose 75 (70-105) 03/12/19 20:03 Hemoglobin A1c 5.7 % (4-6) 03/12/19 20:02 Triglycerides 150 mg/dL (2-149) H 03/12/19 20:02 Cholesterol 201 mg/dL (50-199) H 03/12/19 20:02 LDL Cholesterol Direct 134 mg/dL (50-130) H 03/12/19 20:02 HDL Cholesterol 54 mg/dL (40-59) 03/12/19 20:02 Cholesterol/HDL Ratio 3.72 % 03/12/19 20:02 Last Vital Signs Temp 98.2 F 03/17/19 09:30 Pulse 80 03/16/19 09:32 Resp 16 03/17/19 09:30 BP 157/85 03/17/19 09:30 Pulse Ox 99 03/16/19 09:32
[2019-03-17] MEDS: traZODone 50 MG TAB PO SCH (18:06)
[2019-03-17] MEDS: MELATONIN 5 MG TAB PO SCH (18:06)
[2019-03-17] MEDS: MIRTAZAPINE 15 MG TAB PO SCH (21:34)
[2019-03-18] MEDS: RIVASTIGMINE 4.6 MG/24 HR PATCH TD SCH (10:01)
[2019-03-18] MEDS: ESCITALOPRAM 10 MG TAB PO SCH (10:01)
[2019-03-18] MEDS: prednisoLONE ACETATE 1% OPHTH SUSP 5 ML OS SCH (10:01)
[2019-03-18] MEDS: PANTOPRAZOLE 40 MG TAB PO SCH (10:03)
[2019-03-18] MEDS: TIMOLOL 0.5% OPHTH SOLN 5 ML OS SCH ×2 (10:05→21:27)
--- NOTE | 2019-03-18 13:09 | Progress Note ---
Subjective Date of service: 03/18/19 Principal diagnosis: Dementia Subjective Comment: Patient is calmer and more cooperative. No aggressive behavior and mno prn medication given over the last 24 hours. Per nurses notes: Pt received at 1915 in activity room watching television, alert and oriented to person, no distress noted, will continue to monitor for safety. MSE Orientation: Alert Affect: confused Mood: congruent with affect Thought Process: confused Perceptions: hallucinations Speech: paucity Concentration: lethargic Motor activity: normal Level of consciousness: alert Memory: Impaired Interaction: minimum Objective - Criteria for Continued Treatment Criteria for Continued Treatment: Improving Level of Functioning, Stablizing Level of Functioning, Improving Emotional/Socia - Objective Observation Participation Level: Minimal Reason(s) For Not Participating: Unable Assessment and Plan - Patient Problems (1) Major neurocognitive disorder due to Alzheimer's disease, with behavioral disturbance Current Visit: Yes Status: Acute Plan to address problem: Patient will be admitted for inpatient psychiatric evaluation, medication adjustment and close monitoring The patient's behavior, mood, sleep and appetite will be closely monitored. Patient will be enrolled in individual and group therapeutic sessions and encouraged to attend. Patient will be provided with a safe and structured environment. Patient's physical health needs will be addressed by the Hospitalist. Social Assessment will be completed and the Stemming Machine Operator will work with patient and family to ensure a suitable and safe disposition Medication adjustment will be made as clinically indicated The patient agreed on the treatment plan, understood the risk, benefit, a lternative treatment, potential consequence of no treatment, and gave informed consent. Medications and Allergies Allergies Allergy/AdvReac Type Severity Reaction Status Date / Time peanut AdvReac Unknown Verified 03/12/19 11:46 Home Medications Medication Instructions Recorded Confirmed Last Taken Type Escitalopram 20 mg PO DAILY 03/13/19 03/13/19 Unknown History Melatonin 5 mg PO QHS 03/13/19 03/13/19 Unknown History Mirtazapine [Remeron 30mg TAB] 30 mg PO HS 03/13/19 03/13/19 Unknown History Omeprazole 40 mg PO BID 03/13/19 03/13/19 Unknown History Rivastigmine [Exelon Patch 4.6 mg TRANSDERMA DAILY 03/13/19 03/13/19 Unknown History 4.6mg/24hr] Rivastigmine [Exelon Patch 4.6 mg TRANSDERMA DAILY 03/13/19 03/13/19 Unknown History 4.6mg/24hr] Timolol 0.5% [Timoptic] 0.5 bottle OS BID 03/13/19 03/13/19 Unknown History prednisoLONE ACETATE [Prednisolone 1 drop OS DAILY 03/13/19 03/13/19 Unknown History Acetate] Active Meds: Active Medications Escitalopram Oxalate (Lexapro) 20 mg PO DAILY [facility] Last Admin: 03/18/19 10:01 Dose: 20 mg Documented by: Haloperidol Lactate (Haldol) 5 mg IM Q6H PRN PRN Reason: Agitation Last Admin: 03/14/19 23:20 Dose: 5 mg Documented by: Lorazepam (Ativan) 1 mg IM Q6H PRN PRN Reason: Agitation Last Admin: 03/14/19 22:21 Dose: 1 mg Documented by: Melatonin (Melatonin) 10 mg PO QPM [facility] Last Admin: 03/17/19 18:06 Dose: 10 mg Documented by: Mirtazapine (Remeron) 15 mg PO QHS [facility] Last Admin: 03/17/19 21:34 Dose: 15 mg Documented by: Pantoprazole Sodium (Protonix) 40 mg PO DAILY [facility] Last Admin: 03/18/19 10:03 Dose: 40 mg Documented by: Polyethylene Glycol (Miralax [id number]) 17 gm PO QDAY PRN PRN Reason: Constipation Prednisolone Acetate (Pred Forte 1%) 1 drops OS DAILY [facility] Last Admin: 03/18/19 10:01 Dose: 1 drops Documented by: Rivastigmine (Exelon) 4.6 mg TD DAILY [facility] Last Admin: 03/18/19 10:01 Dose: 4.6 mg Documented by: Timolol Maleate (Timoptic) 1 drops OS BID [facility] Last Admin: 03/18/19 10:05 Dose: 1 drops Documented by: Trazodone HCl (Desyrel) 50 mg PO QPM [facility] Last Admin: 03/17/19 18:06 Dose: 50 mg Documented by: Results - Results Labs/Vitals: Laboratory Last Values POC Glucose 75 (70-105) 03/12/19 20:03 Hemoglobin A1c 5.7 % (4-6) 03/12/19 20:02 Triglycerides 150 mg/dL (2-149) H 03/12/19 20:02 Cholesterol 201 mg/dL (50-199) H 03/12/19 20:02 LDL Cholesterol Direct 134 mg/dL (50-130) H 03/12/19 20:02 HDL Cholesterol 54 mg/dL (40-59) 03/12/19 20:02 Cholesterol/HDL Ratio 3.72 % 03/12/19 20:02 Last Vital Signs Temp 98.2 F 03/18/19 09:47 Pulse 97 H 03/18/19 09:47 Resp 16 03/18/19 09:47 BP 136/85 03/18/19 09:47 Pulse Ox 99 03/18/19 09:47
[2019-03-18] MEDS: MELATONIN 5 MG TAB PO SCH (19:27)
[2019-03-18] MEDS: traZODone 50 MG TAB PO SCH (19:28)
[2019-03-18] MEDS: LORazepam 2 MG/ML VIAL IM PRN (19:53)
[2019-03-18] MEDS: HALOPERIDOL LACTATE 5 MG/1 ML INJ IM PRN (20:51)
[2019-03-18] MEDS: MIRTAZAPINE 15 MG TAB PO SCH (21:27)
--- NOTE | 2019-03-19 07:45 | Progress Note ---
Subjective Date of service: 03/19/19 Principal diagnosis: Dementia Subjective Comment: No major changes. Per nurses notes, Patient began wandering the unit confused at approximately 1920 last night, pushing doors, asking for children, screaming, combative with staff, very difficult to redirect; Ativan Img IM given at 1952, medication ineffective, Haldol 5mg IM given at 2050 ordered to be given if ativan ineffective; po medication administered; Patient then slept good throughout the night, no distress noted. MSE Orientation: Alert Affect: confused Mood: congruent with affect Thought Process: confused Perceptions: hallucinations Speech: paucity Concentration: lethargic Motor activity: normal Level of consciousness: alert Memory: Impaired Interaction: minimum Objective - Criteria for Continued Treatment Criteria for Continued Treatment: Improving Level of Functioning, Stablizing Level of Functioning, Improving Emotional/Socia - Objective Observation Participation Level: Minimal Reason(s) For Not Participating: Unable Assessment and Plan - Patient Problems (1) Major neurocognitive disorder due to Alzheimer's disease, with behavioral disturbance Current Visit: Yes Status: Acute Plan to address problem: Patient will be admitted for inpatient psychiatric evaluation, medication adjustment and close monitoring The patient's behavior, mood, sleep and appetite will be closely monitored. Patient will be enrolled in individual and group therapeutic sessions and encouraged to attend. Patient will be provided with a safe and structured environment. Patient's physical health needs will be addressed by the Hospitalist. Social Assessment will be completed and the Application Support Intern will work with patient and family to ensure a suitable and safe disposition Medication adjustment will be made as clinically indicated The patient agreed on the treatment plan, understood the risk, benefit, alternative treatment, potential consequence of no treatment, and gave informed consent. Medications and Allergies Allergies Allergy/AdvReac Type Severity Reaction Status Date / Time peanut AdvReac Unknown Verified 03/12/19 11:46 Home Medications Medication Instructions Recorded Confirmed Last Taken Type Escitalopram 20 mg PO DAILY 03/13/19 03/13/19 Unknown History Melatonin 5 mg PO QHS 03/13/19 03/13/19 Unknown History Mirtazapine [Remeron 30mg TAB] 30 mg PO HS 03/13/19 03/13/19 Unknown History Omeprazole 40 mg PO BID 03/13/19 03/13/19 Unknown History Rivastigmine [Exelon Patch 4.6 mg TRANSDERMA DAILY 03/13/19 03/13/19 Unknown History 4.6mg/24hr] Rivastigmine [Exelon Patch 4.6 mg TRANSDERMA DAILY 03/13/19 03/13/19 Unknown History 4.6mg/24hr] Timolol 0.5% [Timoptic] 0.5 bottle OS BID 03/13/19 03/13/19 Unknown History prednisoLONE ACETATE [Prednisolone 1 drop OS DAILY 03/13/19 03/13/19 Unknown History Acetate] Active Meds: Active Medications Escitalopram Oxalate (Lexapro) 20 mg PO DAILY [facility] Last Admin: 03/18/19 10:01 Dose: 20 mg Documented by: Haloperidol Lactate (Haldol) 5 mg IM Q6H PRN PRN Reason: Agitation Last Admin: 03/18/19 20:51 Dose: 5 mg Documented by: Lorazepam (Ativan) 1 mg IM Q6H PRN PRN Reason: Agitation Last Admin: 03/18/19 19:53 Dose: 1 mg Documented by: Melatonin (Melatonin) 10 mg PO QPM [facility] Last Admin: 03/18/19 19:27 Dose: 10 mg Documented by: Mirtazapine (Remeron) 15 mg PO QHS [facility] Last Admin: 03/18/19 21:27 Dose: 15 mg Documented by: Pantoprazole Sodium (Protonix) 40 mg PO DAILY [facility] Last Admin: 03/18/19 10:03 Dose: 40 mg Documented by: Polyethylene Glycol (Miralax [id number]) 17 gm PO QDAY PRN PRN Reason: Constipation Prednisolone Acetate (Pred Forte 1%) 1 drops OS DAILY [facility] Last Admin: 03/18/19 10:01 Dose: 1 drops Documented by: Rivastigmine (Exelon) 4.6 mg TD DAILY [facility] Last Admin: 03/18/19 10:01 Dose: 4.6 mg Documented by: Timolol Maleate (Timoptic) 1 drops OS BID [facility] Last Admin: 03/18/19 21:27 Dose: 1 drops Documented by: Trazodone HCl (Desyrel) 50 mg PO QPM [facility] Last Admin: 03/18/19 19:28 Dose: 50 mg Documented by: Results - Results Labs/Vitals: Laboratory Last Values POC Glucose 75 (70-105) 03/12/19 20:03 Hemoglobin A1c 5.7 % (4-6) 03/12/19 20:02 Triglycerides 150 mg/dL (2-149) H 03/12/19 20:02 Cholesterol 201 mg/dL (50-199) H 03/12/19 20:02 LDL Cholesterol Direct 134 mg/dL (50-130) H 03/12/19 20:02 HDL Cholesterol 54 mg/dL (40-59) 03/12/19 20:02 Cholesterol/HDL Ratio 3.72 % 03/12/19 20:02 Last Vital Signs Temp 98.2 F 03/18/19 09:47 Pulse 97 H 03/18/19 09:47 Resp 16 03/18/19 09:47 BP 136/85 03/18/19 09:47 Pulse Ox 99 03/18/19 09:47
[2019-03-19] MEDS: RIVASTIGMINE 4.6 MG/24 HR PATCH TD SCH (10:24)
[2019-03-19] MEDS: PANTOPRAZOLE 40 MG TAB PO SCH (10:24)
[2019-03-19] MEDS: TIMOLOL 0.5% OPHTH SOLN 5 ML OS SCH ×2 (10:24→21:42)
[2019-03-19] MEDS: ESCITALOPRAM 10 MG TAB PO SCH (10:24)
[2019-03-19] MEDS: prednisoLONE ACETATE 1% OPHTH SUSP 5 ML OS SCH (10:25)
[2019-03-19] MEDS: traZODone 50 MG TAB PO SCH (17:12)
[2019-03-19] MEDS: MELATONIN 5 MG TAB PO SCH (17:12)
[2019-03-19] MEDS: MIRTAZAPINE 15 MG TAB PO SCH (21:41)
[2019-03-20] MEDS: TIMOLOL 0.5% OPHTH SOLN 5 ML OS SCH (09:19)
[2019-03-20] MEDS: RIVASTIGMINE 4.6 MG/24 HR PATCH TD SCH (09:19)
[2019-03-20] MEDS: prednisoLONE ACETATE 1% OPHTH SUSP 5 ML OS SCH (09:19)
[2019-03-20] MEDS: ESCITALOPRAM 10 MG TAB PO SCH (09:19)
[2019-03-20] MEDS: PANTOPRAZOLE 40 MG TAB PO SCH (09:19)
--- NOTE | 2019-03-20 09:28 | Discharge Summary ---
Providers - Providers Date of Admission: 03/12/19 18:16 Date of discharge: 03/20/19 Attending physician: KASANDRA TODD MD 03/14/19 09:51 Consult to Physician [CONS] Routine Comment: Consulting Provider: SHAHAB VARGAS Physician Instructions: Reason For Exam: Medical management of Geripsych pt Primary care physician: [employer]PERATOR Hospitalization Reason for admission: Aggitation Condition: Stable Hospital course: The patient was provided inpatient psychiatric treatment with safe and supportive environment, group therapy, individual counseling, psychiatric medication, medication adjustment, adverse effect monitor, medical evaluation, medical treatment, social service assessment, family/social support meeting, placement assessment and psycho-education. The patients mood, anxiety, thoughts, stress management skill, cognition, impulse/anger control, motivation, understanding of disease, compliance to treatment and appreciation on family/social support are improved and stabilized. At the time of discharge, the patient had no suicidal ideas, no homicidal ideas, no aggressive thoughts, no endangering behavior and no debilitating adverse effects. Disposition: DC/[place]-[facility] Allergies/Adverse Reactions: Allergies peanut Adverse Reaction (Verified 03/12/19 11:46) Unknown Vital Signs: Last Vital Signs Temp 98.6 F 03/19/19 09:25 Pulse 90 03/19/19 19:41 Resp 18 03/19/19 19:41 BP 141/90 03/19/19 19:41 Pulse Ox 99 03/19/19 19:41 Last Lab: Laboratory Last Values POC Glucose 75 (70-105) 03/12/19 20:03 Hemoglobin A1c 5.7 % (4-6) 03/12/19 20:02 Triglycerides 150 mg/dL (2-149) H 03/12/19 20:02 Cholesterol 201 mg/dL (50-199) H 03/12/19 20:02 LDL Cholesterol Direct 134 mg/dL (50-130) H 03/12/19 20:02 HDL Cholesterol 54 mg/dL (40-59) 03/12/19 20:02 Cholesterol/HDL Ratio 3.72 % 03/12/19 20:02 - Discharge Diagnoses (1) Major neurocognitive disorder due to Alzheimer's disease, with behavioral disturbance Status: Acute Core Measure Documentation - Palliative Care Palliative Care/ Comfort Measures: Not Applicable - Core Measures Any of the following diagnoses?: none Exam - Constitutional Vitals: Temp Pulse Resp BP Pulse Ox 98.6 F 90 18 141/90 99 03/19/19 09:25 03/19/19 19:41 03/19/19 19:41 03/19/19 19:41 03/19/19 19:41 General appearance: Present: no acute distress, well-nourished - EENT Eyes: Present: PERRL, EOM intact ENT: hearing intact, clear oral mucosa - Neck Neck: Present: supple, normal ROM - Respiratory Respiratory effort: normal Plan Activity: fall precautions Weight Bearing Status: Weight Bear as Tolerated Care Plan Goals: Maintain good and stable mental health Plan of Treatment: Take medications as prescribed Health Concerns: Cognitive decline Assessment: Dementia with behavioral disturbance Follow up with: PRIMARY CARE, [Primary Care Provider] - 7 Days Prescriptions: Mirtazapine [Remeron 15mg TAB] 15 mg PO QHS #30 tablet traZODone [Desyrel] 50 mg PO QPM #30 tablet Melatonin [Melatonin 5MG TAB] 10 mg PO QPM #60 tablet
[2019-03-20 13:33] VITALS: BP 148/77
== END 2019-03-20 17:00 | DRG 57 ==
LOC: UNDOADMIN 15:09 → 3A 15:09 → 5A 18:16
PROVIDERS: ADMIT Psychiatry & Neurology Psychiatry; ATTEND Psychiatry & Neurology Psychiatry
DX: G30.8 Other Alzheimer's disease (principal); F02.81 Dementia in other diseases classified elsewhere, unspecified severity, with behavioral disturbance; G93.49 Other encephalopathy; I10 Essential (primary) hypertension; H40.9 Unspecified glaucoma; F32.9 Major depressive disorder, single episode, unspecified; Z91.010 Allergy to peanuts; Z79.899 Other long term (current) drug therapy; Z90.710 Acquired absence of both cervix and uterus
CPT/HCPCS: 36415; 80053; 80061; 80307; 80320; 81001; 82962; 83036; 85025; 96372; G0378; G0480; J1630; J2060